=== PATIENT | male | born 1970 | race Caucasian/White ===

== ENCOUNTER 2024-09-24 08:23 | Outpatient (CLI) | payer BC, SELFPAY ==
--- NOTE | ~2024-09-24 | XR_ITS ---
XR hand RT min 3V 09/24/2024 08:44 Indication: Osteoarthritis. Procedure: 3 views right hand Comparison: No prior studies for comparison. Findings: Mild polyarticular osteoarthritis. There is atherosclerosis. No fracture, subluxation or di slocation. No erosive changes. Impression: 1: Mild polyarticular osteoarthritis. Reviewed, dictated and finalized at location A. Impression: 1: Mild polyarticular osteoarthritis.
--- NOTE | ~2024-09-24 | XR_ITS ---
XR hand LT min 3V 09/24/2024 08:44 Indication: Osteoarthritis. Procedure: 3 views left hand Comparison: 05/30/2007 Findings: Mild polyarticular osteoarthritis. Normal mineralization. No fracture, subluxation or dislo cation. There is atherosclerosis. Correlate for history of diabetes. Impression: 1: Mild polyarticular osteoarthritis. Reviewed, dictated and finalized at location A. Impression: 1: Mild polyarticular osteoarthritis.
--- OUTSIDE RECORDS SUMMARY | 2024-09-24 08:36 | XMS_ITS | Clinical Summary ---
Author Organization [facility] Address [address] [place] [address] Care Team Providers Care Spinning Supervisor Name Role Phone Izaiah Blakely MD Primary Care Provider [phone] Source Comments [facility] Affiliates and Associated Physician Practices is amultiple site organization consisting of ambulatory clinics and hospital sitesin [place], [place], [place] and [place]. This disclosure is being madepursuant to the Care Everywhere program and may not contain all information available regarding this patient. Last updated 17.[facility] Allergies Active Allergy Reactions Criticality Noted Date Comments Penicillins 04/02/2017 Medications * Be aware that medications may not be up to date on this document. Alwaysverify current medications with the patient. atorvastatin (LIPITOR) 40 MG tablet Take 40 mg by mouth at bedtime Active levothyroxine (SYNTHROID) 100 MCG tablet Take 100 mcg by mouth daily before breakfast Active lisinopril (PRINIVIL; ZESTRIL) 2.5 MG tablet Take 2.5 mg by mouth once daily Active metFORMIN (GLUCOPHAGE) 1000 MG tablet Take 1,000 mg by mouth 2 times daily with morning and evening meal Active pioglitazone (ACTOS) 30 MG tablet Take 30 mg by mouth once daily Active liraglutide (VICTOZA) 18 MG/3ML pen Inject 1.2 mg subcutaneously once daily Active Fluticasone Propionate (FLONASE NA) Active gabapentin PHN (GRALISE) 300 MG tablet Take 300 mg by mouth daily with dinner Active methocarbamol (ROBAXIN) 500 MG tablet Take 1 tablet by mouth 2 times daily as needed for Muscle Spasms 20 tablet 8 Active Active Problems Problem Noted Date Diagnosed Date Lumbar radiculopathy, acute 10/02/2017 Social History Tobacco Use Types Packs/Day Years Used Date Smoking Tobacco: Never Smokeless Tobacco: Never Tobacco Cessation:Counseling Given: No Alcohol Use Standard Drinks/Week Comments No 0 (1 standard drink = 0.6 oz pur e alcohol) Sex and Gender Information Value Date Recorded Sex Assigned at Not on file 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 Gender Identity Not on file Sexual Orientation Not on file Last Filed Vital Signs Vital Sign Reading Time Taken Comments Blood Pressure 118/84 10/02/2017 9:58 AM CDT Pulse 104 10/02/2017 9:58 AM CDT Temperature 37.2 C (99 F) 04/02/2017 12:03 PM MOSS BLEACHER Respiratory Rate 16 04/02/2017 12:03 PM MOSS BLEACHER Oxygen Saturation 97% 04/02/2017 12:03 PM MOSS BLEACHER Inhaled Oxygen Concentration - - Weight 88 kg (194 lb) 10/02/2017 9:58 AM CDT Height 162.6 cm (5' 4) 10/02/2017 9:58 AM CDT Body Mass Index 33.3 10/02/2017 9:58 AM CDT Plan of Treatment Health Maintenance Due Date Last Done Comments COLOGUARD (AGES 45-75) - COL ON CA SCREENING 1971 COLON MONITORING 1971 COLONOSCOPY - COLON CA SCREENING 1971 CT COLONOGRAPHY - COLON CA SCREENING 1971 Colorectal Cancer Screening 1971 FIT - COLON CA SCREENING 1971 FLEX SIG - COLON CA SCREENING 1971 HIV SCREENING 06/12/1986 HEPATITIS C SCREENING 06/08/1989 DTAP/TDAP/TD VACCINES (1 - Tdap) 06/12/1990 HEPATITIS B VACCINE (1 of 3 - 19+ 3-dose series) 06/12/1990 SCREENING FOR DIABETES 04/02/2017 PNEUMOCOCCAL VACCINE 50+ (1 of 1 - PCV) 06/12/2021 ZOSTER VACCINE (1 of 2) 06/12/2021 COVID-19 VACCINE (1 - 2023-2 5 season) 2023 DEPRESSION SCREENING 02/28/2024 INFLUENZA VACCINE (#1) 2024 HIB VACCINE Aged Out No longer eligi ble based on patient's age to complete this topic HPV VACCINE Aged Out No longer eligi ble based on patient's age to complete this topic MENINGOCOCCAL (Group B) VACC INE SHARED DECISION-MAKING Aged Out No longer eligibl e based on patient's age to complete this topic MENINGOCOCCAL GROUPS A/C/Y/W VACCINE Aged Out No longer eligible b ased on patient's age to complete this topic Insurance CARE Care Teams Spinning Supervisor Relationship Specialty Start Date End Date Izaiah Blakely MD [address] [place] [address] PCP - General 08/28/17
--- OUTSIDE RECORDS SUMMARY | 2024-09-24 08:36 | XMS_ITS | Clinical Summary ---
Author Organization [facility] Address [address] [place] [address] Care Team Providers Care Rate Examiner Name Role Phone Edmar Torres Primary Care Provider + Mango Wiley MD Unavailable Unavailable Allergies Active Allergy Reactions Criticality Noted Date Comments Penicillins Unknown 07/25/2012 Medications clotrimazole 1 % creamIndications :Tinea corporis Apply topically 2 (two) times daily. 85 g 022 Active Insulin Pen Needle (BD PEN NEEDLE NATA 2ND GEN) 32G X 4 MM MiscIndications: Type 2 diabetes mellitus ([facility]) USE 1 PEN NEEDLE ONCE DAILY 100 each 3 023 Active triamcinolone (KENALOG) 0.1 % creamIndications :Itching APPLY CREAM EXTERNALLY TWICE DAILY 45 g 024 Active MOUNJARO 10 MG/0.5ML injectionIndicat ions:Type 2 diabetes mellitus with diabetic polyneuropathy, with long-term current use of insulin ([facility]) INJECT 10 MG ( 0.5 ML ) SUBCUTANEOUSLY ONCE A WEEK 24 mL 025 Active lisinopril (PRINIVIL) 2.5 MG tabletIndication s:Type 2 diabetes mellitus with diabetic polyneuropathy, with long-term current use of insulin ([facility]) Take 1 tablet by mouth once daily 90 tablet 1 025 Active fenofibrate 160 MG tabletIndication s:Hypertriglycer idemia Take 1 tablet by mouth once daily 90 tablet 025 Active levothyroxine (SYNTHROID) 100 MCG tabletIndication s:Hypothyroidism , unspecified type TAKE 1 TABLET BY MOUTH ONCE DAILY IN THE MORNING EXCEPT MONDAY TAKE 2 TABS 102 tablet 1 025 Active rimegepant (NURTEC) 75 MG disintegrating tablet Take 1 tablet (75 mg total) by mouth daily as needed for Migraine. Max of 1 tablet (75 mg) in 24 hours. Active rosuvastatin (CRESTOR) 40 MG tabletIndication s:Hyperlipidemia , unspecified hyperlipidemia type TAKE 1 TABLET BY MOUTH NIGHTLY AT BEDTIME 90 tablet 025 Active vitamin D3 (CHOLECALCIFEROL ) 1.25 mg capsuleIndicatio ns:Vitamin D deficiency Take 1 capsule by mouth once a week 12 capsule 025 Active LANTUS 100 UNIT/ML injection (VIAL)Indication s:Type 2 diabetes mellitus with diabetic polyneuropathy, with long-term current use of insulin ([facility]/HCC HHS/HCC) INJECT 30 UNITS SUBCUTANEOUSLY NIGHTLY AT BEDTIME 30 mL 1 025 Active JARDIANCE 10 MG tabletIndication s:Type 2 diabetes mellitus with diabetic polyneuropathy, with long-term current use of insulin (CMS/HCC HHS/HCC) Take 1 tablet by mouth once daily 90 tablet 025 Active Continuous Glucose Sensor (DEXCOM G7 SENSOR) MiscIndications: Uncontrolled type 2 diabetes mellitus with hyperglycemia (CMS/HCC HHS/HCC) USE DIRECTED 3 each 025 Active Insulin Syringe-Needle U-100 (RELION INSULIN SYRINGE) 31G X 15/64 0.5 ML MiscIndications: Type 2 diabetes mellitus with diabetic polyneuropathy, with long-term current use of insulin (CMS/HCC HHS/HCC),Type 2 diabetes mellitus (CMS/HCC HHS/HCC) 1 Needle by Does not apply route daily. 100 each 025 Active metFORMIN (GLUCOPHAGE) 1000 MG tabletIndication s:Type 2 diabetes mellitus with diabetic polyneuropathy, with long-term current use of insulin (CMS/HCC HHS/HCC) TAKE 1 TABLET BY MOUTH TWICE DAILY WITH MEALS 180 tablet 025 Active JARDIANCE 10 MG tabletIndication s:Type 2 diabetes mellitus with diabetic polyneuropathy, with long-term current use of insulin (CMS/HCC HHS/HCC) Take 1 tablet by mouth once daily 90 tablet 025 2024 Discontinued Insulin Syringe-Needle U-100 (RELION INSULIN SYRINGE) 31G X 15/64 0.5 ML MiscIndications: Type 2 diabetes mellitus with diabetic polyneuropathy, with long-term current use of insulin ([facility]),Type 2 diabetes mellitus ([facility]) 1 Needle by Does not apply route daily. 100 each 025 2024 Discontinued(R eorder) metFORMIN (GLUCOPHAGE) 1000 MG tabletIndication s:Type 2 diabetes mellitus with diabetic polyneuropathy, with long-term current use of insulin ([facility]) TAKE 1 TABLET BY MOUTH TWICE DAILY WITH MEALS 180 tablet 025 2024 Discontinued Continuous Glucose Sensor (DEXCOM G7 SENSOR) MiscIndications: Uncontrolled type 2 diabetes mellitus with hyperglycemia ([facility]) USE DIRECTED 3 each 025 2024 Discontinued Active Problems Problem Noted Date Diagnosed Date Fecal urgency 03/23/2022 Overview (03/23/2022): Added automatically from request for surgery [id number] Hypertrophy of both inferior nasal turbinates Laryngopharyngeal reflux (LPR) 05/02/2021 BMI 32.0-32.9,adult 03/05/2019 Benign prostatic hyperplasia with urinary obstru ction 09/17/2018 Lumbar radiculopathy, acute 10/02/2017 Sciatica 09/25/2017 Wears hearing aid in both ears 04/28/2017 Dysphagia 04/29/2016 Elevated liver enzymes 07/24/2013 Hearing loss 05/13/2013 Type 2 diabetes mellitus ([facility]) 02/04 Hyperlipidemia 02/04/2013 Postablative hypothyroidism 02/04/2013 Obstructive sleep apnea syndrome 05/09/2011 Resolved Problems Problem Noted Date Diagnosed Date Resolved Date Epididymitis 07/04/2018 08/11/2022 Brain lesion 08/11/2017 07/27/2021 Assessment & Plan (10/14/2019 7:33 AM CDT): Seen by neurology; incidental with no needed follow-up. Encounters Date Type Department Care Team Description 09/13/2024 Telephone [facility] Internal [address] [address] Edmar Torres, DO Information 07/30/2024 MyChart Message Enc [address] [address] Edmar Torres, DO Hands 07/23/[address] [address] Edmar Torres, DO Lab Order 07/10/2024 8:00 AM CDT Office Visit [address] [address] Edmar Torres, DO Diabetes 07/10/2024 Results Follow-Up [address] [address] Edmar Torres, DO THYROID STIM HORMONE TSH, THYROXINE, FREE (FT4) 07/10/2024 Results Follow-Up [address] [address] Edmar Torres, DO HEMOGLOBIN, GLYCOSYLATED 07/10/2024 Travel 07/05/2024 7:20 AM CDT Laboratory Only [address] [address] Edmar Torres P, DO 07/05/2024 Travel from Last 3 Months Family History Medical History Relation Comments Hirschsprung's disease Child Arthritis Father Cancer Father Diabetes Father Hypertension Father Diabetes Mother Thyroid Mother Coronary artery disease Other Relation Status Comments Child Alive Father Alive Mother Alive Other Alive Social History Tobacco Use Types Packs/Day Years Used Date Smoking Tobacco: Never Passive Smoke Exposure: Past Smokeless Tobacco: Never Tobacco Cessation:Counseling Given: No Alcohol Use Standard Drinks/Week Comments Yes 1 (1 standard drink = 0.6 oz pur e alcohol) rare social AUDIT-C Answer Date Recorded Frequency of Alcohol Consumption Never 02/26/2018 Average Number of Drinks Not on file 018 Frequency of Binge Drinking Not on file 01/29 PHQ-2 Answer Date Recorded Patient Health Questionnaire-2 Score 1 07/10/2024 Sex and Gender Information Value Date Recorded Sex Assigned at Male 07/10/2024 8:57 AM CDT Legal Sex Male 7:36 PM CDT Gender Identity Male 07/10/2024 8:57 AM CDT Sexual Orientation Not on file 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 Not on file Not on file Not on no e Last Filed Vital Signs Vital Sign Reading Time Taken Comments Blood Pressure 122/66 07/10/2024 8:14 AM CDT Pulse 91 07/10/2024 8:14 AM CDT Temperature 36.7 C (98 F) 07/10/2024 8:14 AM CDT Respiratory Rate 16 07/10/2024 8:14 AM CDT Oxygen Saturation 96% 07/10/2024 8:14 AM CDT Inhaled Oxygen Concentration - - Weight 82.7 kg (182 lb 4.8 oz) 07/10/2024 8:14 A M CDT Height 162.6 cm (5' 4) 07/10/2024 8:14 AM CDT Body Mass Index 31.29 07/10/2024 8:14 AM CDT Plan of Treatment Upcoming Encounters Date Type Department Care Team (Late st Contact Info) Description 10/04/2024 8:00 AM CDT Laboratory Only [facility] Family & Internal Medicine [address] [phone] Edmar Torres DO [address] [place] [address] 10/11/2024 7:20 AM CDT Office Visit [facility] Family & Internal [address] [phone] Edmar Torres DO [address] [place] [address] Health Maintenance Due Date Last Done Comments Hepatitis B Vaccines (1 of 3 - 19+ 3-dose series) 06/12/1990 Pneumococcal Vaccine: 50+ Years (1 of 2 - PCV) 06/12/1990 Diabetes: Retinopathy Eye Exam 08/28/2023 08/27/2022, 04/01/2019 Annual Physical 10/08/2024 10/09/2023, 07/28, 07/27/2021 DTaP, Tdap and Td Vaccines (1 - Tdap) 10/08/2024 Postponed from 06/12/1990 (Patient Refused) Zoster Vaccines (1 of 2) 10/08/2024 Pos tponed from 06/12/2021 (Going to Outside Clinic) Hemoglobin A1C 01/10/2025 07/10/2024, 02/28, 10/09/2023, Additional history exists Kidney Health Evaluation 01/19/2025 01/20/2024 Lipid Panel 01/19/2025 01/20/2024, 10/28, 11/15/2022, Additional history exists Colorectal Cancer Screening Colonoscopy (10 Years) 04/05/2027 04/05/2022, 07/01/2003 COVID-19 Vaccine ( - 2023- season) 2112 02/01/2021, 01/08/2021 Postponed from 10/29/2023 (Going to Outside Clinic) Colorectal Cancer Screening FIT/FOBT (1 Year) Discontinued 07/21/2018 Hepatitis C Completed 10/02/2020 PHQ-2 (Physician [place]) Completed 07/10/2024 Meningococcal B Vaccine Aged Out No l onger eligible based on patient's age to complete this topic Meningococcal Vaccine Aged Out No gagandeep tang eligible based on patient's age to complete this topic RSV Immunizations Under 20 Months Aged Out No longer eligible based on patient's age to complete this topic Procedures Procedure Name Priority Date/Time Associated Diagnosis Comments COLLECT.CAPILLARY (FNGR,HEEL,EAR) Routine 07/10/2024 8:11 AM CDT Type 2 diabetes mellitus with diabetic polyneuropathy, with long-term current use of insulin ([facility]) HEMOGLOBIN, GLYCOSYLATED Routine 07/10/2024 Type 2 diabetes mellitus with diabetic polyneuropathy, with long-term current use of insulin ([facility] HHS/HCC) COLLECTION VENOUS BLOOD VENIPUNCTURE Routine 07/05/2024 7:36 AM CDT Hypothyroidism, unspecified type THYROXINE, FREE (FT4) Routine 07/05/2024 7:35 AM CDT Hypothyroidism, unspecified type THYROID STIM HORMONE TSH Routine 07/05/2024 7:35 AM CDT Hypothyroidism, unspecified type LIPID PANEL Routine 01/20/2024 8:08 AM SUPERVISING FIRE MARSHAL Type 2 diabetes mellitus with diabetic polyneuropathy, with long-term current use of insulin ([facility] HHS/HCC) Encounter for preventative adult health care examination Screening for lipid disorders Screening for endocrine, metabolic and immunity disorder Screening for prostate cancer DIABETIC RETINOPATHY EXAM (NEGATIVE)(SCAN ORDER) Routine 08/27/2022 HEPATITIS C ANTIBODY Routine 10/02/2020 8:12 PM CDT Need for hepatitis C screening test OCCULT BLOOD, FECES STAT 07/21/2018 9 :00 PM CDT COLONOSCOPY Routine 07/01/2003 12:00 AM CDT from Last 3 Months or Most Recently Relevant to Health Maintenance Results * (ABNORMAL) HEMOGLOBIN, GLYCOSYLATED (07/10/2024) HGB A1C 6.3(A) % [facility] 07/10/2024 us Edmar Torres DO LABORATORY Final Re sult [facility] [address] [place] [address], * THYROXINE, FREE (FT4) (07/05/2024 7:35 AM CDT) FREE T4 1.17 0.76 - 1.46 NG/DL 07/05/2024 3:35 PM CDT [facility] 07/05/2024 7:35 AM CDT Edmar Torres DO LABORATORY Final Re sult Performing Organization Address City/[facility]/ZIP Co de Phone Number [address] [address], [place] [phone] * (ABNORMAL) THYROID STIM HORMONE TSH (07/05/2024 7:35 AM CDT) TSH 0.114(L) 0.358 - 3.740 uIU/ML 07/05/2024 3:35 PM CDT [facility] 07/05/2024 7:35 AM CDT Edmar Torres DO LABORATORY Final Re sult Performing Organization Address [facility] Co de Phone Number [address] [address], [place] [phone] * LIPID PANEL (01/20/2024 8:08 AM SUPERVISING FIRE MARSHAL) CHOLESTEROL 138 <200 MG/DL 01/20/2024 10:42 AM SUPERVISING FIRE MARSHAL [facility] TRIGLYCERIDES 67 <150 MG/DL 01/20/2024 10:42 AM SUPERVISING FIRE MARSHAL [facility] HDL 46 >40.0 MG/DL 01/20/2024 10:42 AM [facility] LDL (CALCULATED) 79 <100 MG/DL 01/20/20 10:42 AM [facility] NON HDL CHOLESTEROL 92 <130 MG/DL 01/19 10:42 AM [facility] CHOL/HDL RATIO 3.0 0.0 - 4.5 01/20/2024 10:42 AM [facility] VLDL CALCULATION 13 5 - 55 MG/DL 01/20/2024 10:42 AM [facility] LIPID INTERPRETATION 01/20/2024 10:42 AM [facility] Comment: [facility] REPORT RECOMMENDATIONS: ADULT CHILD LOW RISK: CHOLESTEROL <200 <170 TRIGLYCERIDE <150 --- HDL >=60 --- LDL <100 <110 BORDERLINE: CHOLESTEROL 200-239 170-199 TRIGLYCERIDE 150-199 --- HDL 40-59 --- LDL 100-159 110-129 HIGH RISK: CHOLESTEROL >=240 >=200 TRIGLYCERIDE >=200 --- HDL <40 --- LDL >=160 >=130 01/20/2024 8:08 AM SUPERVISING FIRE MARSHAL Edmar Torres DO LABORATORY Final Re sult Performing Organization Address [facility] Co de Phone Number [facility] [address] [address], [place] [phone] * DIABETIC RETINOPATHY EXAM (NEGATIVE)(SCAN) (08/27/2022) [facility] Scanned SCANNING Final Resu lt Performing Organization Address [facility] de Phone Number [facility] * HEPATITIS C ANTIBODY (10/02/2020 8:12 PM CDT) HEPATITIS C AB NON-REACTI VE NON-REACT YEMI 10/03/2020 10:48 PM CDT [facility] Comment: ANTIBODIES TO HCV NOT DETECTED. DOES NOT EXCLUDE THE POSSIBILITY OF EXPOSURE TO HCV. 10/02/2020 8:12 PM CDT Edmar Torres DO LABORATORY Final Re sult Performing Organization Address [facility] Co de Phone Number [facility] [address] [place] [address], [place] [phone] * OCCULT BLOOD, FECES (07/21/2018 9:00 PM CDT) OCCULT BLOOD FECAL POSITIVE 07/21/2018 9:13 PM CDT [facility] STOOL SPECIMEN / Unknown 07/21/2018 9:00 PM CDT us Hue GENTILE BODY FLUIDS AND STOOLS ORDERA BLES Final Result [facility] [address] [place] [address], * Colonoscopy (07/01/2003 12:00 AM CDT) 07/01/2003 07/01/2003 Narrative [facility] TO EPIC CONVERSION - 07/01/2003 12:00 AM CDT Documented hx of procedure Procedure Note , Generic Conversion, - 12/31/2017 Documented hx of procedure us Generic Conversion Md YOU[facility] GI PROCEDURE ORDERABLES Final Result Performing Organization Address City/[facility] Co de Phone Number [facility] TO EPIC CONVERSION from Last 3 Months or Most Recently Relevant to Health Maintenance Additional Health Concerns Infection Onset Date Last Indicated MRSA 03/19/2018 03/19/2018 Insurance [facility] [email or web address]] Care Teams Rate Examiner Relationship Specialty Start Date End Date Edmar Torres DO [address] [place] [address] [phone] PCP - General FAMILY PRACTICE 02/26/18 Mango Wiley MD [address] [place] [address] Referring Physician Neurology Psychiatry 10/19/18
--- OUTSIDE RECORDS SUMMARY | 2024-09-24 08:36 | XMS_ITS | Encounter Summary ---
Author Organization [facility] Address [address] [place] [address] Care Team Providers Care Network Operations Center Technician Name Role Phone Edmar Torres DO Primary Care Provider + Mango Wiley MD Unavailable Unavailable Encounter Details Date Type Department Care Team (Late st Contact Info) Description 05/24/2023 MyChart Message Enc [facility] Family & Internal Medicine [facility] [address] [place] [address] Edmar Torres DO [address] [place], [place] [phone] [place] Social History Tobacco Use Types Packs/Day Years Used Date Smoking Tobacco: Never Passive Smoke Exposure: Past Smokeless Tobacco: Never Alcohol Use Standard Drinks/Week Comments Yes 1 (1 standard drink = 0.6 oz pur e alcohol) rare social AUDIT-C Answer Date Recorded Frequency of Alcohol Consumption Never 02/26/2018 Average Number of Drinks Not on file 018 Frequency of Binge Drinking Not on file 01/29 PHQ-2 Answer Date Recorded Patient Health Questionnaire-2 Score 0 03/03/2023 Sex and Gender Information Value Date Recorded Sex Assigned at Male 07/10/2024 8:57 AM CDT Legal Sex Male 7:36 PM CDT Gender Identity Male 07/10/2024 8:57 AM CDT Sexual Orientation Not on file 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 Ozempic is not as likely to be as effective. documented in this encounter Plan of Treatment Upcoming Encounters Date Type Department Care Team (Late st Contact Info) Description 10/04/2024 8:00 AM CDT Laboratory Only [facility] Family & Internal [address] [address] Edmar Torres DO [address] [place] [address] 10/11/2024 7:20 AM CDT Office Visit [facility] Family Internal [address] [phone] Edmar Torres DO [address] [place] [address] documented as of this encounter Visit Diagnoses Not on filedocumented in this encounter Additional Health Concerns Infection Onset Date Last Indicated Resolved Time MRSA 03/19/2018 03/19/2018 Assessment Noted Time PHQ-9 Depression Total Score: 7 03/11/19 21 7:33 AM PRINCIPAL SECURITY ARCHITECT documented as of this encounter Care Teams Network Operations Center Technician Relationship Specialty Start Date End Date Edmar Torres DO [address] [place] [address] PCP - General FAMILY PRACTICE 02/26/18 Mango Wiley MD [address] [place] [address] Referring Physician Neurology Psychiatry 10/19/18 documented as of this encounter
--- OUTSIDE RECORDS SUMMARY | 2024-09-24 08:36 | XMS_ITS | Patient Health Record ---
Author Organization [facility] Address [address] [place], [place] [address] Care Team Providers Care Account Manager Sales Representative Name Role Phone DELANEY CHILDRESS Unavailable [phone] MelissaAlyssaEdmar Unavailable Unavailable Allergies Allergen (clinical drug ingredient) Drug/Non Drug Allergy documented on EMR Reaction Allergy Type Onset Date Status Substance with penicillin structure and antibacterial mechanism of action (substance) Penicillins Unknown Drug Allergy 08/09/2017 active Reason For Referral No Information Medications Medication SIG (Take, Route, Frequency, Duration) Notes Start Date End Date Status Z-YVES ORAL Z-PAKOriginal MedicationZ-YVES *Reorder from Medispan for eRx and Interaction Alerts* 08/09/2017 Active Medrol Dosepak ORAL Medrol DosepakOr iginal MedicationMedrol Dosepak *Reorder from Medispan for eRx and Interaction Alerts* 10/23/2018 Active Plan Of Treatment No Information Insurance Providers Payer Name Payer Address Payer Phone Subscriber Number Group Number Insured Name Patient Relationship to Insured Coverage Start Date Coverage End Date [facility] [address] [address] [place] [id number] NASIR FERMIN Spouse - patient is the spouse of the insured
--- OUTSIDE RECORDS SUMMARY | 2024-09-24 08:36 | XMS_ITS | Encounter Summary ---
Author Organization [facility] Address [address] [place] [address] Care Team Providers Care Supervisor Alum Plant Name Role Phone Edmar Torres DO Primary Care Provider + Mango Wiley MD Unavailable Unavailable Encounter Details Date Type Department Care Team (Late st Contact Info) Description 01/30/2024 MyChart Message Enc 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 Repeat BMP in 1 month and increase hydration. Other labs are within acceptable limits and can be repeated in 1 year. SSIONS NURSE documented in this encounter Plan of Treatment Upcoming Encounters Date Type Department Care Team (Late st Contact Info) Description 10/04/2024 8:00 AM CDT Laboratory Only [facility] Family & Internal [place] [address] [place] [address] Edmar Torres DO [address] [place] [address] 10/11/2024 7:20 AM CDT Office Visit [facility] Family & Internal [address] [address] Edmar Torres DO [address] [place] [address] documented as of this encounter Visit Diagnoses Not on filedocumented in this encounter Additional Health Concerns Infection Onset Date Last Indicated Resolved Time MRSA 03/19/2018 03/19/2018 Assessment Noted Time PHQ-9 Depression Total Score: 7 03/11/19 21 7:33 AM ADMISSIONS NURSE documented as of this encounter Care Teams Supervisor Alum Plant Relationship Specialty Start Date End Date Edmar Torres DO [address] [place] [address] PCP - General FAMILY PRACTICE 02/26/18 Mango Wiley MD [address] [place] [address] Referring Physician Neurology Psychiatry 10/19/18 documented as of this encounter
--- OUTSIDE RECORDS SUMMARY | 2024-09-24 08:36 | XMS_ITS ---
Author Organization [facility] Address [address] [place], [place] [address] Care Team Providers Care Triage Technician Name Role Phone DELANEY CHILDRESS Unavailable [phone] Edmar Torres Unavailable Unavailable TERRELL CERNA Unavailable [phone] REASON FOR VISIT *Fungal nail check Encounters Encounter Location Date Provider Diagnosis [facility] [address] [place], [place] [id number] 04/18/2023 TERRELL CERNA Plan Of Treatment No Information Progress Notes * IGOR FERMIN ADOB: (54 yo M)Acc No.[id number]:04/18/2023 Patient: Keron IGOR NGUYEN Provider: Radha CERNA :1970 A ge:52 Y S ex:Male Date:04/18/2023 Address:[address] [place], [place] [id number] Subjective: * Chief Complaints: * 1 . *Fungal nail check. * Medical History: Objective: * Vitals: Assessment: Plan: * Treatment: * Billing Information: * Visit Code: * Procedure Codes: * Electronic signature of AMY CERNA DPM on 09/24/2024 at 07:50 AM CDT Sign off status: Pending * Provider: Radha CERNA Date: 0 04/18/2023 Generated for George kerns/Faxing/eTransmitting on: 0 09/24/2024 07:50 AM CDT
--- OUTSIDE RECORDS SUMMARY | 2024-09-24 08:36 | XMS_ITS | Referral Summary ---
Author Organization [place] [id number] Address [address] [place] [address] Care Team Providers Care Manager Forms Name Role Phone Edmar Torres Primary Care Provide r Allergies Active Allergy Reactions Criticality Noted Date Comments Penicillins Unknown 07/25/2012 As a child Medications lisinopriL (PRINIVIL,ZESTR IL) 2.5 mg tabletIndicatio ns:Diabetic Nephropathy Take 2.5 mg by mouth every morning 06/23/19 21 Active atorvastatin (LIPITOR) 80 mg tabletIndicatio ns:hyperlipidem ia Take 80 mg by mouth nightly 06/23/19 21 Active levothyroxine (SYNTHROID) 100 mcg tabletIndicatio ns:hypothyroidi sm Take 100 mcg by mouth rubber off before breakfast 04/20/19 21 Active metFORMIN (GLUCOPHAGE) 1,000 mg tabletIndicatio ns:type 2 diabetes mellitus Take 1,000 mg by mouth 2 (two) times a day 06/23/19 21 Active BD Nitza 2nd Gen Pen Needle 32 gauge x 5/32 needle USE 1 PEN NEEDLE ONCE DAILY 07/08/19 21 Active blood-glucose transmitter device DEXCOM G6 Active Dexcom G6 Security Incident Handler misc as directed 10/23/19 21 Active fenofibrate (TRIGLIDE) 160 mg tablet Take 160 mg by mouth daily 11/05/19 21 Active insulin glargine (LANTUS, SEMGLEE) 100 unit/mL vial for injectionIndica tions:type 2 diabetes mellitus Inject 40 Units under the skin every morning 11/05/19 21 Active Farxiga 10 mg tablet Take 10 mg by mouth daily for 30 days 03/01/19 22 Active Ozempic 0.25 mg or 0.5 mg(2 mg/1.5 mL) pen injector injection INJECT 0.5 MG SUBCUTANEOUSLY EACH WEEK 02/27/[address] (PROTONIX) 40 mg EC tabletIndicatio ns:Laryngophary ngeal reflux (LPR) Take 1 tablet (40 mg total) by mouth 2 (two) times a day 60 tablet 3 04/30/19 22 Active Dexcom G6 Sensor device as directed 03/14/19 22 Active Active Problems Problem Noted Date Diagnosed Date Hypertrophy of both inferior nasal turbinates Laryngopharyngeal reflux (LPR) 05/02/2021 Chronic pansinusitis 05/02/2021 Type 2 diabetes mellitus 07/03/2020 Hypothyroidism 07/03/2020 Obstructive sleep apnea syndrome 05/09/2011 Overview (12/30/2020): DIAGNOSIS: Obstructive sleep apnea PROCEDURE PERFORMED: (Benjamin 12/14/20) Right hypoglossal nerve stimulator implantation Generator placement right chest wall Lead placement right intercostal muscle Social History Tobacco Use Types Packs/Day Years Used Date Smoking Tobacco: Never Smokeless Tobacco: Never AUDIT-C Answer Date Recorded Q1: How often do you have a drink containing alc ohol? Monthly or less 12/03/2020 Q2: How many drinks containi ng alcohol do you have on a typical day when you are drinking? 1 or 2 12/03/2020 Q3: How often do you have si x or more drinks on one occasion? Never 12/03/2020 Sex and Gender Information Value Date Recorded Sex Assigned at Not on file Legal Sex Male 9:47 AM RN DIABETES Gender Identity Not on file Sexual Orientation Not on file Last Filed Vital Signs Vital Sign Reading Time Taken Comments Blood Pressure 126/84 01/11/2021 3:42 PM RN DIABETES Pulse 90 01/11/2021 3:42 PM RN DIABETES Temperature 36.4 C (97.5 F) 01/11/2021 3:42 PM RN DIABETES Respiratory Rate 17 06/03/2021 9:00 AM CDT Oxygen Saturation 96% 01/11/2021 3:42 PM RN DIABETES Inhaled Oxygen Concentration - - Weight 86.6 kg (191 lb) 06/03/2021 9:00 AM CDT Height 162.6 cm (5' 4) 06/03/2021 9:00 AM CDT Body Mass Index 32.79 06/03/2021 9:00 AM CDT Plan of Treatment Not on file Medical Devices Implanted Type Area Neuropsychiatric Aide Device Identifier Shelf Expiration Date Model / Serial / Lot [employer] 4340 Lead Neurostimulator Inspire Respiratory Sens Cycle Strl - [id number] - [id number] Implanted:Qty: 1 on 12/14/2020 by Giancarlo Alexander MD at [facility] Right: Chest [employer] 07/08/2022 4340 / [id number] / [employer] 4063 Inspire 3 Electrode Cuff Tunnel Kai Lead Neurostimulator [facility] - [id number] - [id number] Implanted:Qty: 1 on 12/14/2020 by Giancarlo Alexander MD at [facility] Right: Neck [employer] 04/06/2022 4063 / [id number] / [employer] 3028 Generator Neurostimulator - [id number] - [id number] Implanted:Qty: 1 on 12/14/2020 by Giancarlo Alexander MD at [facility] Right: Chest [employer] 04/08/2023 3028 / [id number] / Insurance [facility] CHOICE PLUS [facility] CHOICE PLUS Care Teams Manager Forms Relationship Specialty Start Date End Date Edmar Torres DO [address] [place] [address] PCP - General Family Medicine 10/28/19
--- OUTSIDE RECORDS SUMMARY | 2024-09-24 08:36 | XMS_ITS | Encounter Summary ---
Author Organization [facility] Address [address] [place] [address] Care Team Providers Care Umbrella Finisher Name Role Phone Edmar Torres Primary Care Provider + Mango Wiley MD Unavailable Unavailable Encounter Details Date Type Department Care Team (Late Contact Info) Description 05/11/2022 Oscar Message Enc [facility] Family & Internal Medicine [address] [address] [facility] Provider Appointment needed Social History Tobacco Use Types Packs/Day Years Used Date Smoking Tobacco: Never Smokeless Tobacco: Never Alcohol Use Standard Drinks/Week Comments Yes 1 (1 standard drink = 0.6 oz pur e alcohol) rare social AUDIT-C Answer Date Recorded Frequency of Alcohol Consumption Never 02/26/2018 Average Number of Drinks Not on file 018 Frequency of Binge Drinking Not on file 01/29 PHQ-2 Answer Date Recorded PHQ-2 Score - If the patient scores above 3, please move on to questions 3-9 0 01/27/2022 Sex and Gender Information Value Date Recorded Sex Assigned at Male 07/10/2024 8:57 AM CDT Legal Sex Male 7:36 PM CDT Gender Identity Male 07/10/2024 8:57 AM CDT Sexual Orientation Not on file 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 Not on file Not on file Not on no e documented as of this encounter Plan of Treatment Upcoming Encounters Date Type Department Care Team (Late Contact Info) Description 10/04/2024 8:00 AM CDT Laboratory Only [facility] Family & Internal [address] [place] [address] [place] [address] [place] [address] 10/11/2024 7:20 AM CDT Office Visit [facility] Family & Internal Medicine - [address] [phone] Edmar Torres DO [address] [place] [address] documented as of this encounter Visit Diagnoses Not on filedocumented in this encounter Additional Health Concerns Infection Onset Date Last Indicated Resolved Time 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
--- OUTSIDE RECORDS SUMMARY | 2024-09-24 08:36 | XMS_ITS | Clinical Summary ---
Author Organization [place] [id number] [facility] Address [address] [place] [address] Care Team Providers Care Sports Medicine Physician Name Role Phone Edmar Torres Primary Care [...] ns:hypothyroidi sm Take 100 mcg by mouth financial sales manager before breakfast 04/20/19 21 Active metFORMIN (GLUCOPHAGE) 1,000 mg tabletIndicatio ns:type 2 diabetes mellitus Take 1,000 mg by mouth 2 (two) times a day 06/23/19 21 Active BD Nitza 2nd Gen Pen Needle 32 gauge x 5/32 needle USE 1 PEN NEEDLE ONCE DAILY 07/08/19 21 Active blood-glucose transmitter device DEXCOM G6 Active Dexcom G6 Celluloid Trimmer misc as directed 10/23/19 21 Active fenofibrate [...] chest wall Lead placement right intercostal muscle Surgical History Surgery Date Site/Laterality Comments NASAL SEPTUM SURGERY unknown date TOTAL THYROIDECTOMY 02/28/1996 - 02/26/1997 HERNIA REPAIR unknown dates x2 Medical History Medical History Date Comments Personal history of other en docrine, nutritional and metabolic disease History of Graves' d isease - status post thyroidectomy in 1997. 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 Gender Identity Not on file Sexual Orientation Not on file Obstetrics History Last Filed Vital Signs Vital Sign Reading Time Taken Comments Blood Pressure 126/84 01/11/2021 3:42 PM COLLEGE ASSOCIATE Pulse 90 01/11/2021 3:42 PM COLLEGE ASSOCIATE Temperature 36.4 C (97.5 F) 01/11/2021 3:42 PM COLLEGE ASSOCIATE Respiratory Rate 17 06/03/2021 9:00 AM CDT Oxygen Saturation 96% 01/11/2021 3:42 PM COLLEGE ASSOCIATE Inhaled Oxygen Concentration - - Weight 86.6 kg (191 lb) 06/03/2021 9:00 AM CDT Height 162.6 cm (5' 4) 06/03/2021 9:00 AM CDT Body Mass Index 32.79 06/03/2021 9:00 AM CDT Plan of Treatment Not on file Medical Devices Implanted Type Area Associate Account Director Device Identifier Shelf Expiration Date Model / Serial / Lot [employer] 4340 Lead Neurostimulator Inspire Respiratory Sens Cycle Strl - [id number] - [id number] Implanted:Qty: 1 on 12/14/2020 by Giancarlo Alexander MD at [facility] Right: Chest [employer] 07/08/2022 4340 / [id number] / [employer] 4063 Inspire 3 Electrode Cuff Tunnel Kai Lead Neurostimulator [employer] - [id number] - [id number] Implanted:Qty: 1 on 12/14/2020 by Giancarlo Alexander MD at [facility] Right: Neck [employer] 04/06/2022 4063 / [id number] / [employer] 3028 Generator Neurostimulator - [id number] - [id number] Implanted:Qty: 1 on 12/14/2020 by Giancarlo Alexander MD at [facility] Right: Chest [employer] 04/08/2023 3028 / [id number] / [place] [id number] [facility] CHOICE PLUS [facility] CHOICE PLUS Care Teams Sports Medicine Physician Relationship Specialty Start Date End Date Edmar Torres DO [address] [place] [address] PCP - General Family Medicine 10/28/19
--- OUTSIDE RECORDS SUMMARY | 2024-09-24 08:36 | XMS_ITS | Continuity of Care Document ---
Author Organization [facility] Address [address] [facility] [address] [place] [address] Phone Care Team Providers Care Vp Name Role Phone Hank Riggins DO Unavailable Unavailable Advance Directives Directive Yes / No Effective Date File Name No Information Encounters Encounter Description Practice Location Reason(s) For Visit Diagnoses Date Provider Providers Copied on Encounter [facility], [address] [place], [place], [id number], [place] tel:[phone] [facility] No Information Gilson Paredes. [address] [place], [address], [place]. tel:[phone] Referring Provider: Tray Moore MD, [address], [address]. tel:[phone] Family History Family Member Type Diagnosis Age At Onset No Information Payers Payer name Insurance type Covered alliance party ID Authoriza tion(s) Medicaid [facility] [id number] Social History Type Description Quantity Date Captured Comments Sex Male Smoking Status No Information Chief Complaint And Reason For Visit No Information Reason For Referral Reason For Referral No Information History Of Present Illness Encounter Date Complaint History Of Prese nt Illness No Information Functional Status Date Functional Assessmen t No Information Instructions Date Instruction Additional Infor mation No Information Assessments Type Assessment Date No Information Patient Care Teams Name Effective Dates (start - stop) Status Members No Information
== END 2024-09-24 08:24 | disposition home or self-care (01) ==
PROVIDERS: Visit Provider Plastic Surgery
DX: M19.042 Primary osteoarthritis, left hand (principal); M19.041 Primary osteoarthritis, right hand
CPT/HCPCS: 73130